=== PATIENT | female | born 1955 | race American Indian/Alaskan Native ===

== ENCOUNTER 2017-11-20 18:50 | Emergency (ER) | payer OTHER ==
[~2017-11-20] VITALS: Ht 160 cm; Wt 78.5 kg
[~2017-11-20 18:50] MED LIST: AMLODIPINE BESYL5 MG PO; ASPIRIN EC81 MG PO; BACTROBAN22 GM TP; CIPROFLOXACIN500 MG PO; GLIPIZIDE XL2.5 MG PO; HYDROCHLOROTHIA25 MG PO; HYDROPHILIC120 GM TP; LISINOPRIL40 MG PO; LORATADINE10 MG PO; METFORMIN HCL500 MG PO; SIMVASTATIN20 MG PO; VITAMIN D35000 UNIT PO
[2017-11-20] MEDS ORDERED: GLIPIZIDE XL10 MG PO ×2 (19:06→19:20)
[2017-11-20] MEDS ORDERED: BASAGLAR K100 UNIT/1 SUB-Q (19:07)
[2017-11-20] MEDS ORDERED: METFORMIN HCL500 MG PO (19:20)
[2017-11-20] MEDS ORDERED: LANTUS100 UNITS/ SUB-Q (19:20)
== END 2017-11-20 19:33 | disposition home or self-care (01) ==
LOC: ED 18:50
DX: Z76.0 Encounter for issue of repeat prescription (principal); E11.9 Type 2 diabetes mellitus without complications; I10 Essential (primary) hypertension; F17.200 Nicotine dependence, unspecified, uncomplicated; Z88.8 Allergy status to other drugs, medicaments and biological substances; Z79.4 Long term (current) use of insulin; Z79.899 Other long term (current) drug therapy
CPT/HCPCS: 99281

== ENCOUNTER 2019-04-19 10:02 | Emergency (ER) | payer OTHER ==
[~2019-04-19] VITALS: Ht 160 cm; Wt 81.3 kg
[~2019-04-19 10:02] MED LIST changes: +BASAGLAR K100 UNIT/1 SUB-Q; +GLIPIZIDE XL10 MG PO; +LANTUS100 UNITS/ SUB-Q
--- OUTSIDE RECORDS SUMMARY | 2019-04-19 10:06 | XMS ---
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 Jeanette has no Care Guidelines for this patient. Celsa VISIT COUNT (12 MO.) 1 CAROLANN Fried TOTAL 1 NOTE: Visits indicate total known visits. ED/C VISIT TRACKING (12 MO.) 04/19/2019 10:03 CAROLANN Perez OR TYPE: Emergency COMPLAINT: - BLOOD IN URINE, PAIN INPATIENT VISIT TRACKING (12 MO.) No inpatient visits to display in this time frame [email or web address]
[2019-04-19] MEDS ORDERED: PHENTERMINE H37.5 M1 PO (10:30)
[2019-04-19] MEDS ORDERED: FLUTICASONE PRO16 GM NAS (10:31)
[2019-04-19] MEDS ORDERED: PYRIDIUM200 MG PO (12:30)
[2019-04-19] MEDS ORDERED: MACROBID 100 M100 MG PO (12:30)
== END 2019-04-19 13:45 | disposition home or self-care (01) ==
LOC: ED 10:02
DX: N39.0 Urinary tract infection, site not specified (principal); E11.9 Type 2 diabetes mellitus without complications; I10 Essential (primary) hypertension; F17.200 Nicotine dependence, unspecified, uncomplicated; Z71.6 Tobacco abuse counseling; Z88.8 Allergy status to other drugs, medicaments and biological substances; Z79.899 Other long term (current) drug therapy; Z79.84 Long term (current) use of oral hypoglycemic drugs
CPT/HCPCS: 74176; 80053; 81001; 85025; 87077; 87088; 87186; 96365; 99284-25; 99406; J0696

== ENCOUNTER 2020-04-19 07:35 | Day surgery (SDC) | payer OTHER ==
[~2020-04-19] VITALS: Ht 160 cm; Wt 76.8 kg
[~2020-04-19 07:35] MED LIST changes: +FLUTICASONE PRO16 GM NAS; +MACROBID 100 M100 MG PO; +PHENTERMINE H37.5 M1 PO; +PYRIDIUM200 MG PO
[2020-04-19] MEDS ORDERED: ZYRTEC10 M3 PO (07:58)
--- NOTE | 2020-04-19 09:51 | NUR ---
04/19/20 0951 Radha Valdes 0946- PT ARRIVES TO PACU AROUSABLE TO VOICE. PT REPORTS NO PAIN OR NAUSEA AND FALLS BACK TO SLEEP. PT REPORTS SHE IS "JUST TIRED". PT PASSING FLATUS.
--- NOTE | 2020-04-19 10:45 | OR ---
[facility] [address] [place], [place] [address] Signed DATE OF OPERATION: 04/19/2020 SURGEON: Denisse Leon MD PREOPERATIVE DIAGNOSES: 1. Left mid quadrant and left lower quadrant abdominal pain. 2. History of diverticulosis. POSTOPERATIVE DIAGNOSES: 1. Minimal sigmoid diverticulosis. 2. Minimal internal hemorrhoids. 3. 6 mm polyp at 95 cm. 4. 4 mm polyp at 90 cm. 5. 5 mm polyp at 35 cm. 6. 4 mm polyp at 20 cm. 7. 4 mm polyp at 7 cm. PROCEDURE: Colonoscopy with hot biopsies. ESTIMATED BLOOD LOSS: None. INDICATIONS: Charu is a 64-year-old lady, who has undergone previous endoscopy back in 2008 and 2013. She is known to have diverticulosis. She had been down in [place] as her mom was . She ended up in the emergency room in November 2019 while in [place]. She was having left lower quadrant abdominal pain. She remembers a CT scan being performed, but has no details. They gave her antibiotics for diverticulitis. Overall, she feels better. She feels like she has some residual pain more in the left mid quadrant. She has now returned to [facility]. She has been asked to follow up for colonoscopy. She gives no family history of colon cancer or polyps. She talked about her had a sigmoid resection possibly for diverticulitis. She is pretty certain I did his surgery. In the office, I gave her a pamphlet on colonoscopy and we looked at that together along with the risks including, but not limited to gas bloating, crampy abdominal pain, bleeding, perforation requiring surgery, and missed diagnosis. We also discussed the need for IV conscious sedation. She had expressed understanding and wished to proceed. PROCEDURE NOTE: Electronically Signed By: DENISSE LEON MD 04/19/20 1045 PATIENT NAME: CHARU MARSHALL OPERATIVE REPORT DATE OF : 59 REPORT #: [id number] PHYSICIAN: DENISSE LEON MD PCP: NIMA GARVEY MD REPORT IS CONFIDENTIAL AND NOT TO BE RELEASED WITHOUT AUTHORIZATION [facility] [address] [place], [place] [address] Signed Charu was taken into our endoscopy suite and placed in the left lateral decubitus position. She was given 6 mg of Versed and 150 mcg of fentanyl to cover the case. A digital rectal exam was performed and this was unremarkable. The adult colonoscope was introduced and advanced all around into the cecum under direct visualization of camera without difficulty. The appendiceal orifice and the ileocecal valve were easily visualized. We had taken pictures throughout for photodocumentation. The scope was then slowly withdrawn. The above-mentioned polyps were easily removed and destroyed completely with the help of hot biopsy forceps. We did see a few diverticula in her sigmoid colon. They were moderate in size, few in number, and scattered about. The rectum was unremarkable, except for the one polyp. Upon retroflexion of the scope, she has very minimal internal hemorrhoid tissue. After this, the gas was suctioned out and colonoscope removed. Charu tolerated the procedure quite well. RECOMMENDATIONS: I will see Charu back in my office in 7 to 14 days to review her results. Denisse Leon MD ALB/MODL /[id number] cc: MD Nuzhat Kendall NP Copies: DENISSE LEON MD ~ Electronically Signed By: DENISSE LEON MD 04/19/20 1045 PATIENT NAME: CHARU MARSHALL OPERATIVE REPORT DATE OF : 59 REPORT #: [id number] PHYSICIAN: DENISSE LEON MD PCP: NIMA GARVEY MD REPORT IS CONFIDENTIAL AND NOT TO BE RELEASED WITHOUT AUTHORIZATION
--- NOTE | 2020-04-23 14:51 | PATH ---
[facility] [address] [place], [place] [address] Signed SPECIMEN(S): A COLON POLYP AT 95 CM SPECIMEN(S): B COLON POLYP AT 90 CM SPECIMEN(S): C COLON POLYP AT 35 CM SPECIMEN(S): D COLON POLYPAT 20 CM SPECIMEN(S): E RECTAL POLYP AT 7 CM SPECIMEN SOURCE: A. COLON POLYP AT 95 CM B. COLON POLYP AT 90 CM C. COLON POLYP AT 35 CM D. COLON POLYPAT 20 CM E. RECTAL POLYP AT 7 CM CLINICAL HISTORY: History of diverticulitis, LLQ pain. MICROSCOPIC DESCRIPTION: Histologic sections of all submitted blocks are examined by light microscopy. These findings, together with the gross examination, support the pathologic diagnosis. FINAL PATHOLOGIC DIAGNOSIS: A. Colon polyp at 95 cm, polypectomy: - Tubular adenoma with focal high-grade dysplasia. - Negative for malignancy. B. Colon polyp at 90 cm, polypectomy: - Fragment of polypoid-like colonic mucosa with increased chronic inflammation; see comment. - Negative for dysplasia. C. Colon polyp at 35 cm, polypectomy: - Fragment of polypoid-like colonic mucosa with increased chronic inflammation; see comment. - Negative for dysplasia. D. Colon polyp at 20 cm, polypectomy: - Hyperplastic polyp. E. Rectal polyp at 7 cm, polypectomy: - Hyperplastic polyp. COMMENT: Deeper levels were evaluated with similar findings. DDF:cml:C2NR PATIENT NAME: JOANNACHARUALENA MOLINA PATHOLOGY DATE OF : 59 REPORT #: [id number] PHYSICIAN: SJ FRANKS PCP: NIMA GARVEY MD REPORT IS CONFIDENTIAL AND NOT TO BE RELEASED WITHOUT AUTHORIZATION [facility] [address] [place], [place] [address] Signed GROSS DESCRIPTION: Five specimens are received in five containers, labeled "Charu Marlow." A. The specimen, labeled "Charu Marlow, #1," and designated on the requisition "colon polyp at 95 cm," is received in formalin and consists of one stephen soft tissue fragment that measures 0.4 cm in greatest dimension. The specimen is entirely submitted in cassette (A1). B. The specimen, labeled "Charu Marlow, #2," and designated on the requisition "colon polyp at 90 cm," is received in formalin and consists of one stephen soft tissue fragment that measures 0.3 cm in greatest dimension. The specimen is entirely submitted in cassette (B1). C. The specimen, labeled "Charu Marlow, #3," and designated on the requisition "colon polyp at 35 cm," is received in formalin and consists of one stephen soft tissue fragment that measures 0.4 cm in greatest dimension. The specimen is entirely submitted in cassette (C1). D. The specimen, labeled "Charu Marlow, number first," and designated on the requisition "colon polyp at 20 cm," is received in formalin and consists of one stephen soft tissue fragment that measures 0.4 cm in greatest dimension. The specimen is entirely submitted in cassette (D1). E. The specimen, labeled "Charu Marlow, #5," and designated on the requisition "rectal polyp at 7 cm," is received in formalin and consists of one stephen soft tissue fragment that measures 0.4 cm in greatest dimension. The specimen is entirely submitted in cassette (E1). FB (under the direct supervision of a pathologist) The Gross Description was prepared using a voice recognition system. The report was reviewed for accuracy; however, sound-alike word errors, addition and/or deletions may occur. If there is any question about this report, please contact Client Services. PERFORMING LABORATORY: The technical component was performed by [facility], [address] [place], [place] [id number] (Wireless Team Member: Johanna Robert MD; CLIA# [id number]). Professional interpretation was performed by [facility], [address] [place] [id number] (Wireless Team Member: Johanna Robert MD; CLIA# [id number]). Diagnostician: Lan Rucker DO Pathologist Electronically Signed 04/23/2020 Copies: PATIENT NAME: CHARU MARLOW PATHOLOGY DATE OF : 59 REPORT #: [id number] PHYSICIAN: SJ FRANKS PCP: NIMA GARVEY MD REPORT IS CONFIDENTIAL AND NOT TO BE RELEASED WITHOUT AUTHORIZATION [address] [place] [address] Signed ~ PATIENT NAME: CHARU MARLOW PATHOLOGY DATE OF : 59 REPORT #: [id number] PHYSICIAN: SJ FRANKS PCP: NIMA GARVEY MD REPORT IS CONFIDENTIAL AND NOT TO BE RELEASED WITHOUT AUTHORIZATION
== END 2020-04-19 10:40 | disposition home or self-care (01) ==
LOC: OPS 07:35 → DS 07:35 → OPS 09:00
PROVIDERS: ATTEND Colon & Rectal Surgery
PROC: 0DBE8ZZ Excision of Large Intestine, Via Natural or Artificial Opening Endoscopic (ICD-10-PCS; principal; 2020-04-19 09:00)
DX: K57.30 Diverticulosis of large intestine without perforation or abscess without bleeding (principal); D12.6 Benign neoplasm of colon, unspecified; K63.5 Polyp of colon; K51.40 Inflammatory polyps of colon without complications; K62.1 Rectal polyp; K64.8 Other hemorrhoids; E11.9 Type 2 diabetes mellitus without complications; I10 Essential (primary) hypertension; F32.9 Major depressive disorder, single episode, unspecified; E66.9 Obesity, unspecified; F17.210 Nicotine dependence, cigarettes, uncomplicated; E55.9 Vitamin D deficiency, unspecified; Z87.442 Personal history of urinary calculi; Z79.4 Long term (current) use of insulin; Z79.82 Long term (current) use of aspirin; Z88.1 Allergy status to other antibiotic agents; Z88.8 Allergy status to other drugs, medicaments and biological substances; Z68.31 Body mass index [BMI] 31.0-31.9, adult
CPT/HCPCS: 99153; G0500; J2250; J3010; J7121

== ENCOUNTER 2021-03-28 09:27 | Inpatient (IN) | payer OTHER ==
[~2021-03-28] VITALS: Ht 160 cm; Wt 76.6 kg
--- NOTE | ~2021-03-28 | CONS ---
[facility] [address] [place], [place] [address] Draft DATE OF CONSULTATION: 03/28/2021 REQUESTING PHYSICIAN: Dr. Diaz. PROBLEM: Left-sided colitis. HISTORY OF PRESENT ILLNESS: This 65-year-old woman was admitted by Dr. Diaz with left-sided abdominal pain. A CT scan finding showing inflammation extending from the splenic flexure to the rectosigmoid area. Notably, the patient does smoke on a routine basis. She has undergone colonoscopy in the past by Dr. Denisse Leon and noted to have polyps. Her last operative report was April 19, 2020, nearly a year ago, which showed minimal sigmoid diverticulosis and internal hemorrhoids as well as very small polyps throughout the colon. The patient has been treated for left lower abdominal pain, considered diverticulitis in the past. In the past two weeks, she has had vague left-sided abdominal pain. She was evaluated by Dr. Waters at [facility] and underwent a CT scan relatively recently (not seen in my review of records locally) and showed nothing of concern other than diverticular changes. Her presentation was to the emergency room today at approximately 9:30, where she was evaluated by Dr. Beck Navarrete with complaints of left lower abdominal pain and nausea and vomiting and diarrhea. She had hematochezia to include bright red blood per rectum and copious liquid bloody fluid as well. FAMILY HISTORY: Negative for colon cancer that she is aware of. She denies any family history of ulcerative colitis or Crohn disease. CURRENT MEDICATIONS: Have included Zyrtec, atorvastatin, Trulicity, amlodipine, aspirin, vitamin D3, hydrochlorothiazide, and lisinopril. As noted, she smokes on a daily basis. PAST SURGICAL HISTORY: Includes tubal ligation. SOCIAL HISTORY: She is . She is a [employer] member and lives in the [facility]. PATIENT NAME: CHARU MARSHALL CONSULTATION DATE OF : 59 REPORT #: [id number] PHYSICIAN: BECK CLAYTON MD PCP: [facility] REPORT IS CONFIDENTIAL AND NOT TO BE RELEASED WITHOUT AUTHORIZATION [facility] [address] [place], [place] [address] Draft REVIEW OF SYSTEMS: Denies any shortness of breath or chest pain. Has had no dysphagia or dysuria. Denies any hematuria. Has had blood per rectum as previously described and has persistent left lower abdominal pain currently. PHYSICAL EXAMINATION: GENERAL: Pleasant woman, who does not look to be in severe distress or toxicity. VITAL SIGNS: Temperature is 98.3, pulse 64, blood pressure 163/62. NECK: Shows no thyromegaly or cervical adenopathy. Trachea is midline. She has no hoarseness. CHEST: Clear. HEART: Regular without murmur. ABDOMEN: Nondistended. She has tenderness on the left side and none on the right side. She does not have ascites clinically. EXTREMITIES: Show no clubbing, cyanosis, or edema. LABORATORY STUDIES: Showed a white count of 14.1 at approximately 10:45 a.m. today, hematocrit 40.6, platelets 316,000. Chem profile notable for an elevated creatinine of 1.25, glucose 256. Her albumin 3.7. Lipase 114. Serology shows positive on her coronavirus test. Upon review, she has had COVID disease within the past 90 days and has clinically recovered fully from that. On that basis, she is not in respiratory isolation at this time. It is unclear if she had colonic manifestations when she did have a COVID disease. CT scan images were reviewed and report reviewed, which described left-sided colitis. I reviewed the films myself and appears less apparent to me than the radiologist at this point. ASSESSMENT: Most likely, the patient has ischemic colitis that has been postulated by Dr. Diaz. She has rather typical manifestations including left-sided abdominal pain, thickening on CT scan and hematochezia. I would recommend colonoscopy primarily to differentiate diagnosis from other comorbidities including ischemic colitis versus ulcerative colitis or other infectious colitis. Characteristic distribution of ischemic colitis as well as normal mucosa of the rectum and more proximal colon is all often confirmatory of this as well. The risks of bleeding, infection, and perforation related to colonoscopy was reviewed with her, she understands and wished to proceed. We will plan to do this tomorrow at some point. Beck Clayton MD PATIENT NAME: CHARU MARSHALL CONSULTATION DATE OF : 59 REPORT #: [id number] PHYSICIAN: BECK CLAYTON MD PCP: [facility] REPORT IS CONFIDENTIAL AND NOT TO BE RELEASED WITHOUT AUTHORIZATION [facility] [address] [place], [place] [address] Draft TONI/SUNSHINEL /[id number] cc: MD Sean Kendall MD [facility] Damián Diaz MD Copies: DENISSE LEON MD,DAMIÁN OCHOA MD ~ PATIENT NAME: CHARU MARSHALL CONSULTATION DATE OF : 59 REPORT #: [id number] PHYSICIAN: BECK CLAYTON MD PCP: [facility] REPORT IS CONFIDENTIAL AND NOT TO BE RELEASED WITHOUT AUTHORIZATION
--- NOTE | ~2021-03-28 | OR ---
[facility] [address] [place], [place] [address] Draft DATE OF OPERATION: 03/28/2021 SURGEON: Beck Clayton MD PREOPERATIVE DIAGNOSIS: Left-sided colitis. POSTOPERATIVE DIAGNOSES: 1. Classic ischemic colitis extending from splenic flexure through sigmoid. 2. Polyps x2 (small). PROCEDURES: 1. Total colonoscopy to cecum with cold morcellation polypectomy x2. 2. Multiple biopsies remaining colon including ischemic segment. ANESTHESIA: Intravenous sedation, propofol infusion, Beck Beatty CRNA INDICATIONS: This 65-year-old woman is admitted by Dr. Beaulieu on March 28, 2021 with left-sided pain, blood per rectum, and CT scan findings consistent with colitis of the left colon. Ischemic colitis was considered likely. The patient has had no similar episodes in the past. She does smoke on a daily basis. She has been given intravenous antibiotics, IV fluids, and bowel rest and continues to have left-sided abdominal pain and some amount of blood per rectum. She did tolerate MiraLAX bowel prep. She is admitted to undergo colonoscopy at this time to affirm the clinical diagnosis of probable ischemic colitis. On the possibility, this represents inflammatory bowel disease problem, for which specific therapy would be altered. She understands the risks of bleeding, infection, and perforation related to colonoscopy and wished to proceed. FINDINGS: The prep was good. Complete colonoscopy was undertaken to the cecum without question. She had classic ischemic colitis extending from the splenic flexure through the sigmoid colon. The rectum was spared. There was a small polyp of the rectosigmoid, which was excised and another similar small polyp of the proximal ascending colon which was also excised. Biopsies were taken of normal colon at the cecum, transverse colon and rectum, and of the abnormal colon in the proximal descending, mid descending, and sigmoid areas. DESCRIPTION OF PROCEDURE: The patient was brought to the endoscopy suite and placed in lateral decubitus position PATIENT NAME: CHARU MARSHALL OPERATIVE REPORT DATE OF : 59 REPORT #: [id number] PHYSICIAN: BECK CLAYTON MD PCP: [facility] REPORT IS CONFIDENTIAL AND NOT TO BE RELEASED WITHOUT AUTHORIZATION [facility] [address] [place], [place] [address] Draft given intravenous sedation with propofol infusional technique by the director sports with full cardiopulmonary monitoring. Digital rectal examination was normal. An Olympus video colonoscope was passed into the rectum and manipulated throughout the colon. Upon entering the proximal sigmoid colon quite obvious ischemic changes were noted with some areas of circumferential ischemic colitis. The scope was advanced beyond the splenic flexure to the mid transverse colon, which was normal. Scope was ultimately advanced to the cecum. In the cecum, the ileocecal valve was normal. Biopsies were taken in the cecum to assure its normal histology. A small polyp was noted in the proximal ascending colon, cecal junction. This was excised with cold morcellation technique. Further withdrawal of scope allowed for biopsy of the mid transverse colon and ischemic changes began at approximately the splenic flexure. Biopsies were taken there and in the mid colon and sigmoid affirming the ischemic change. Most of the ischemia was actually in the mid to left and sigmoid area. Upon withdrawal beyond the sigmoid, completely normal mucosa was noted as is typical of this problem. A small polyp was noted of the rectum, which was excised with cold morcellation technique and biopsies taken of the rectum as well. Retroflexed view was normal. Scope was removed. The patient was taken to the recovery room in good condition. CONCLUDING DIAGNOSIS: 1. Classic ischemic colitis, left colon. 2. Two small polyps, both excised. PLAN: Recommend a low fiber diet for the next 4 weeks. I will see her back in followup in 4-6 weeks. Consideration will be made for followup colonoscopy to assure resolution and lack of stricture formation. Antibiotics at discharge may be reasonable at the discretion of Dr. Beaulieu. MD TONI Carrasco/MODL /[id number] PATIENT NAME: CHARU MARSHALL OPERATIVE REPORT DATE OF : 59 REPORT #: [id number] PHYSICIAN: BECK CLAYTON MD PCP: [facility] REPORT IS CONFIDENTIAL AND NOT TO BE RELEASED WITHOUT AUTHORIZATION [facility] [address] [place], [place] [address] Draft cc: Damián Beaulieu MD [facility] Copies: DAMIÁN BEAULIEU MD [facility] ~ PATIENT NAME: CHARU MARSHALL OPERATIVE REPORT DATE OF : 59 REPORT #: [id number] PHYSICIAN: BECK CLAYTON MD PCP: [facility] REPORT IS CONFIDENTIAL AND NOT TO BE RELEASED WITHOUT AUTHORIZATION
[~2021-03-28 09:27] MED LIST changes: +ZYRTEC10 M3 PO
[2021-03-28] MEDS ORDERED: ATORVASTATIN CA10 MG PO (10:32)
[2021-03-28] MEDS ORDERED: TRULICITY3 MG/0.5 M SQ (10:32)
--- NOTE | 2021-03-28 15:17 | NUR ---
pt admitted from the ER for abdominal pain, NPO, room air , A&Ox4, denies pain at the moment, zofran given in the ER.
--- NOTE | 2021-03-28 16:24 | NUR ---
patient tested positive on of this year so she falls in the 90day no retest. Dr. Diaz is okay with us not considering her as covid +.
--- NOTE | 2021-03-28 17:30 | NUR ---
pt is has questions about restarting home medications, this nurse talked to DR Diaz and he is holding her home meds at the moment due to pt NPO status.
--- NOTE | 2021-03-28 18:46 | NUR ---
DR CLAYTON ROUNDED ON PT, PLAN TO DO COLONOSCOPY TOMORROW MORNING PT AWARW, NO BM YET UNABLE TO COLLECT STOOL SAMPLE EDUCATED THAT WE WILL NEED A SAMPLE. DENIES ANY NEEDS AT THE MOMENT
--- NOTE | 2021-03-28 19:26 | NUR ---
PT COMPLAINING OF HEADACHE PRN TYLENOL GIVEN
--- NOTE | 2021-03-28 19:45 | NUR ---
BEDSIDE REPORT FROM ANDERSON CANNON RN, PT RESTING IN BED, SPOUSE AT BEDSIDE, THEY HAD QUESTIONS ABOUT PLAN OF CARE, DISCUSSED BOWEL PREP AND PLAN FOR COLONOSCOPY TOMORROW. NO OTHER QUESTIONS AT THIS TIME. PT APPEARS TO BE IN NO DISTRESS.
--- NOTE | 2021-03-28 20:51 | NUR ---
pt sitting up at bedside, starting mirlax bowel prep, bedside commode available, call light in reach, pt reports no pain or nausea.
--- NOTE | 2021-03-28 22:00 | NUR ---
PT CALLED NURSES STATION TO REPORT SHE HAS HAD HER FIRST BM SINCE STARTING BOWEL PREP.
--- NOTE | 2021-03-28 23:32 | NUR ---
PT HAS COMPLETED 1/3 OF DOSE OF MIRLAX SHE HAS BEEN UP TO VOID AND HAVE BM, WAS NOTED TO HAVE ONE SMALL FORMED STOOL PIECE, ALSO NOTED TO HAVE JOHN BLOOD SMALL AMOUNT WITH STOOL OUT. PT REPORTS SHE HAS SOME NAUSEA, WHEN SET UP WITH FURTHER MIRLAX DRINK MIX, ZOFRAN GIVEN, WILL MONITOR FOR COMPLETION.
--- NOTE | 2021-03-28 23:40 | NUR ---
CALLED THE UNIT FOR UPDATES, ASKED ABOUT PT'S MIRLAX, SHE WILL ONLY COMPLETE ABOUT 2/3 OF DOSE BY MIDNIGHT, SAID THAT WILL BE ENOUGH TO STOP AT MIDNIGHT, SHE HAS HAD CLEAR LIQUID STOOLS WITH ONE SMALL APPROX 3.81 CM FORMED STOOL NOTED AT 2200.
--- NOTE | 2021-03-28 23:57 | NUR ---
PT UP TO BEDSIDE COMMODE, SHE HAD VOID AND MUCUS BLOODY BM JOHN IN COLOR SMALL AMOUNT. PT REPORTS NAUSEA BETTER AFTER ZOFRAN GIVEN, PT HAS NO DISTRESS NOTED. SHE REPORTS NO PAIN AT THIS TIME.
--- NOTE | 2021-03-29 00:09 | NUR ---
CHECKED WITH LAB ABOUT STOOL SAMPLE THAT ANDERSON CANNON RN SHOWED ME AND SHE STICKERED AND SENT IN TUBE SYSTEM, HEAD MEN'S TENNIS COACH SAID THEY DO NOT HAVE SAID SAMPLE. HE WENT TO LAB ABD DOUBLE CHECKED THEN REPORTED BACK NO SAMPLE IN LAB FOR THIS PT. WILL MONITOR IF NEW SAMPLE CAN BE SENT OVER THIS SHIFT.
--- NOTE | 2021-03-29 00:17 | NUR ---
STOOL SAMPLE SENT AT THIS TIME BY THIS RN TO LAB, ALSO NOTIFIED LAB STAFF THAT IT HAS BEEN SENT.
--- NOTE | 2021-03-29 03:56 | NUR ---
PT CALLED NURSES STATION TO REPORT IV PUMP BEEPING, NEW BAG FLUID STARTED. SHE VERBALIZED SHE HAS SOME MILD PAIN SHE FEELS IS RELATED TO NEEDING TO USE THE BSC AGAIN, SHE DENIES WANTING ANYHTING FOR PAIN AT THIS TIME.
--- NOTE | 2021-03-29 06:15 | NUR ---
PT TOOK IN 2/3 OF DOSE OF BOWEL PREPBEFORE MIDNIGHT, SHE HAS HAD MULTIPLE LIQUID STOOLS, JOHN TO DARK RED BLOOD NOTED IN STOOLS. SHE HAS REPORTED NOT NEEDING ANY PAIN MEDICATION OVER SHIFT, SHE DID HAVE NAUSEA ONCE DURING BOWEL PREP, ZOFRAN PRN GIVEN AND WAS AFFECTIVE. SHE HAS BEEN INDEPENDENT TO BEDSIDE COMMODE. STOOL SAMPLE SENT ON THIS SHIFT. PT'S WOULD LIKE TO TALK TO HER ON THE PHONE BEFORE SHE GOES INTO PROCEDURE.
--- NOTE | 2021-03-29 07:15 | NUR ---
BED SIDE REPORT RECIEVED FROM SPEEDER WORKER RN PLAN FOR COLONOSCOPY, NPO SINCE MIDNIGHT, DENIES ANY NEEDS AT THE MOMENT.
--- NOTE | 2021-03-29 09:07 | NUR ---
RN IN ROOM TO ASSESS PT AND GIVE MORNING MEDS
--- NOTE | 2021-03-29 09:20 | NUR ---
Pt lives in 2 story home with 2 steps. LIves with her spouse. Works from [employer]. Denies needs. Awaiting colonoscopy today and may be able to dc to home following per Dr. Fried.
--- NOTE | 2021-03-29 09:53 | NUR ---
PT Taken down to procedure.
--- NOTE | 2021-03-29 10:09 | NUR ---
Pt denies needs. Awaiting surgery. Denies use of DME. Will return to [facility] on discharge. [employer]al officers to transport.
--- NOTE | 2021-03-29 10:38 | NUR ---
03/29/21 1038 Shila Rodriguez 1019 PT ARRIVED IN PACU NON RESPONSIVE TO NOXIOUS STIMULI WITH OPA IN PLACE. CHIN LIFT HELD. 1035 PT REACTIVE. OPA REMOVED. ABD SOFT AND PASSING FLATUS.
--- NOTE | 2021-03-29 10:48 | NUR ---
PT HAS BEEN TAKEN TO OR. WILL FOLLOW
--- NOTE | 2021-03-29 11:04 | NUR ---
PT BACK FROM SCOPE, A&OX4, ROOM AIR, NO PAIN
--- NOTE | 2021-03-29 11:45 | NUR ---
PT GIVEN LOW FIBER MENU, UP TO BATHROOM SBA, WILL ORDER LUNCH TRAY. NO OTHER NEEDS AT THE MOMENT
--- NOTE | 2021-03-29 12:03 | NUR ---
PT TAKEN TO OR. WILL FOLLOW
[2021-03-29] MEDS ORDERED: CEPHALEXIN500 MG PO (13:33)
[2021-03-29] MEDS ORDERED: METRONIDAZOLE500 MG PO (13:33)
[2021-03-29] MEDS ORDERED: NICOTINE1 EAC2 TD (13:34)
[2021-03-29] MEDS ORDERED: OXYCODONE HCL5 MG PO (13:34)
[2021-03-29] MEDS ORDERED: FLONASE ALLERG9.9 ML NAS (13:42)
--- NOTE | 2021-03-29 13:42 | NUR ---
dr boyd rounded on pt and plan for discharge today
[2021-03-29] MEDS ORDERED: ONDANSETRON ODT4 MG SL (13:43)
== END 2021-03-29 15:14 | disposition home or self-care (01) | DRG 393 ==
LOC: ED 09:27 → MS 14:42
PROVIDERS: ADMIT Internal Medicine; ATTEND Internal Medicine
PROC: 8E0ZXY6 Isolation (ICD-10-PCS; principal; 2021-03-28)
PROC: 0DBH8ZZ Excision of Cecum, Via Natural or Artificial Opening Endoscopic (ICD-10-PCS; 2021-03-28)
PROC: 0DBK8ZX Excision of Ascending Colon, Via Natural or Artificial Opening Endoscopic, Diagnostic (ICD-10-PCS; 2021-03-28)
PROC: 0DBP8ZZ Excision of Rectum, Via Natural or Artificial Opening Endoscopic (ICD-10-PCS; 2021-03-28)
PROC: 0DBK8ZX Excision of Ascending Colon, Via Natural or Artificial Opening Endoscopic, Diagnostic (ICD-10-PCS; 2021-03-28)
PROC: 0DBL8ZX Excision of Transverse Colon, Via Natural or Artificial Opening Endoscopic, Diagnostic (ICD-10-PCS; 2021-03-28)
PROC: 0DBN8ZX Excision of Sigmoid Colon, Via Natural or Artificial Opening Endoscopic, Diagnostic (ICD-10-PCS; 2021-03-28)
DX: K55.039 Acute (reversible) ischemia of large intestine, extent unspecified (principal); U07.1 COVID-19; K51.50 Left sided colitis without complications; K63.5 Polyp of colon; E11.9 Type 2 diabetes mellitus without complications; I10 Essential (primary) hypertension; E78.5 Hyperlipidemia, unspecified; F17.200 Nicotine dependence, unspecified, uncomplicated; Z98.51 Tubal ligation status; Z88.1 Allergy status to other antibiotic agents; Z88.8 Allergy status to other drugs, medicaments and biological substances; Z79.4 Long term (current) use of insulin; Z79.82 Long term (current) use of aspirin; Z79.899 Other long term (current) drug therapy
CPT/HCPCS: 74177; 80053; 81001; 83690; 85025; 99285-25; C9803; J0690; J1815; J2405; J2704; J7121; U0003

== ENCOUNTER 2021-06-24 12:41 | Day surgery (SDC) | payer OTHER ==
[~2021-06-24] VITALS: Ht 160 cm; Wt 76.3 kg
[~2021-06-24 12:41] MED LIST changes: +ATORVASTATIN CA10 MG PO; +CEPHALEXIN500 MG PO; +FLONASE ALLERG9.9 ML NAS; +METRONIDAZOLE500 MG PO; +NICOTINE1 EAC2 TD; +ONDANSETRON ODT4 MG SL; +OXYCODONE HCL5 MG PO; +TRULICITY3 MG/0.5 M SQ
--- NOTE | 2021-06-24 14:55 | NUR ---
06/24/21 1455 Radha Valdes 1449- PT ARRIVES TO PACU REACTIVE TO STIMULI. PT FALLS INSTANTLY BACK TO SLEEP. RESP EVEN AND UNLABORED. OXYGEN SAT LOW TO MID 90'S ON 2L VIA NC. 1453- PT REACTIVE TO STIMULI. PT MORE ALERT THIS TIME AND REPORTS SHE IS NOT HAVING ANY PAIN OR NAUSEA.
--- NOTE | 2021-06-25 12:21 | PATH ---
[facility] [address], [place] [address] Signed SPECIMEN(S): A DUODENAL BIOPSY SPECIMEN(S): B ANTRUM BIOPSY SPECIMEN(S): C DISTAL LOW ESOPHAGEAL BIOPSY SPECIMEN(S): D MID ESOPHAGEAL BIOPSY SPECIMEN(S): E LEFT SPLENIC FLEXURE BIOPSY SPECIMEN(S): F RECTAL BIOPSY SPECIMEN SOURCE: A. DUODENAL BIOPSY B. ANTRUM BIOPSY C. DISTAL LOW ESOPHAGEAL BIOPSY D. MID ESOPHAGEAL BIOPSY E. LEFT SPLENIC FLEXURE BIOPSY F. RECTAL BIOPSY CLINICAL HISTORY: Colonoscopy/EGD. GERD with esophagitis; history of ischemic colitis (03/26)/hiatal hernia, distal esophagitis. FINAL PATHOLOGIC DIAGNOSIS: A. Duodenum, biopsy: - Duodenal mucosa with no histopathologic abnormality. - Negative for increased intraepithelial lymphocytes or villous blunting. - Negative for dysplasia or malignancy. B. Stomach, antrum, biopsy: - Oxyntic mucosa with focal chronic, inactive gastritis. - Antral mucosa with no histopathologic abnormality. - Negative for Helicobacter organisms on HE stain. - Negative for dysplasia or malignancy. C. Esophagus, distal lower, biopsy: - Intestinal metaplasia arising in [id number] mucosa with chronic inflammation and reactive changes. - Squamous mucosa with mild chronic inflammation and reactive epithelial changes, suggestive of reflux esophagitis. - Negative for dysplasia or malignancy. - See Comment. D. Esophagus, mid, biopsy: - Squamous mucosa with no significant histopathologic abnormality. - Negative for increased intraepithelial eosinophils. - Negative for dysplasia or malignancy. PATIENT NAME: CHARU MARSHALL PATHOLOGY DATE OF : 59 REPORT #: [id number] PHYSICIAN: SJ FRANKS PCP: NIMA GARVEY MD REPORT IS CONFIDENTIAL AND NOT TO BE RELEASED WITHOUT AUTHORIZATION [facility] [address], [place] [address] Signed E. Colon, left and splenic flexure, biopsy: - Fragments of colonic mucosa with focal crypt architectural distortion. - Negative for active, chronic, or microscopic colitis. - Negative for dysplasia or malignancy. - See Comment. F. Rectum, biopsy: - Rectal mucosa with no histopathologic abnormality. - Negative for active or chronic proctitis. - Negative for dysplasia or malignancy. 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 Regarding specimen E: The focal crypt architectural distortion could represent an area of previous colonic injury. There is no active colitis. NAL:smn:[id number] MICROSCOPIC EXAMINATION: Histologic sections of all submitted blocks are examined by light microscopy. These findings, together with the gross examination, support the pathologic diagnosis. GROSS DESCRIPTION: Six specimens are received in six containers, labeled "KM." A. The specimen, labeled "KM, duodenum biopsy," is received in formalin and consists of two stephen soft tissue fragments that measure 0.2-0.3 cm in greatest dimension. The specimen is entirely submitted in cassette (A1). B. The specimen, labeled "KM, antrum biopsy," is received in formalin and consists of three stephen soft tissue fragments that measure 0.2-0.7 cm in greatest dimension. The specimen is entirely submitted in cassette (B1). C. The specimen, labeled "KM, distal low esophagus biopsy," is received in formalin and consists of four stephen soft tissue fragments that measure 0.1-0.2 cm in greatest dimension. The specimen is entirely submitted in cassette (C1). D. The specimen, labeled "KM, mid esophagus biopsy," is received in formalin and consists of one stephen soft tissue fragment that measures 0.2 cm in greatest dimension. The specimen is entirely submitted in cassette (D1). E. The specimen, labeled "KM, left colon and splenic flexure biopsy," is PATIENT NAME: CHARU MARSHALL PATHOLOGY DATE OF : 59 REPORT #: [id number] PHYSICIAN: SJ FRANKS PCP: NIMA GARVEY MD REPORT IS CONFIDENTIAL AND NOT TO BE RELEASED WITHOUT AUTHORIZATION [facility] [address], [place] [address] Signed received in formalin and consists of five stephen soft tissue fragments that measure 0.1-0.2 cm in greatest dimension. The specimen is entirely submitted in cassette (E1). F. The specimen, labeled "KM, rectal biopsy," is received in formalin and consists of two stephen soft tissue fragments that measure 0.2 cm in greatest dimension. The specimen is entirely submitted in cassette (F1). JS (under the direct supervision of a pathologist) The Gross Description was prepared using a voice recognition system. The report was reviewed for accuracy; however, sound-alike word errors, addition and/or deletions may occur. If there is any question about this report, please contact Client Services. PERFORMING LABORATORY: The technical component was performed by [facility], [address] [place], [place] [id number] (Outbound Supervisor: Johanna Robert MD; CLIA# [id number]). Professional interpretation was performed by [facility], [address], [address] [place] [address] (CLIA# [id number]). Diagnostician: Anastasia Stanley MD Pathologist Electronically Signed 06/25/2021 Copies: ~ PATIENT NAME: CHARU MARSHALL PATHOLOGY DATE OF : 59 REPORT #: [id number] PHYSICIAN: SJ PATHOLOGY PCP: NIMA GARVEY MD REPORT IS CONFIDENTIAL AND NOT TO BE RELEASED WITHOUT AUTHORIZATION
--- NOTE | 2021-06-25 19:02 | OR ---
[facility] [address] [place], [place] [address] Signed DATE OF OPERATION: 06/24/2021 SURGEON: Beck Clayton MD PREOPERATIVE DIAGNOSES: 1. Gastroesophageal reflux disease which is symptomatic. 2. History of ischemic colitis, March 2021. POSTOPERATIVE DIAGNOSES: 1. Hiatal hernia and mild distal esophagitis. 2. Normal-appearing colon except for scattered diverticula; resolution of ischemic colitis. PROCEDURE: 1. Esophagogastroduodenoscopy with biopsy. 2. Total colonoscopy to cecum with biopsies of left colon. ANESTHESIA: Intravenous sedation fentanyl 150 mcg and Versed 4 mg (total). INDICATION: This 65-year-old woman is a patient of Dr. Nima Waters, [facility]. She was admitted and treated for ischemic colitis in March 2021. She has recovered from those symptoms completely. She additionally has significant reflux symptoms for which upper endoscopy is requested. She is admitted at this time to undergo upper endoscopy as well as concurrent colonoscopy to assess there is complete resolution of the ischemic colitis. Notably, she did have excision of cecal polyp on previous colonoscopy in March. FINDINGS: Upper endoscopy did show hiatal hernia and mild distal esophagitis. There was no stricture. It was equivocal regarding Dover's epithelium; a short segment Dover's might be possible. She clearly had a hiatal hernia contributing to reflux symptoms. The stomach had mild antral gastritis. The duodenum was normal. CLOtest was 20 minutes post procedure. On colonoscopy, the prep was quite excellent. Complete colonoscopy was undertaken. There was no sign of polyp. There were scattered diverticula of the sigmoid and complete resolution of ischemic colitis of the left colon and rectosigmoid. Electronically Signed By: BECK CLAYTON MD 06/25/211901 PATIENT NAME: CHARU MARSHALL OPERATIVE REPORT DATE OF : 59 REPORT #: [id number] PHYSICIAN: BECK CLAYTON MD PCP: NIMA WATERS MD REPORT IS CONFIDENTIAL AND NOT TO BE RELEASED WITHOUT AUTHORIZATION [facility] [address], [place] [address] Signed DESCRIPTION OF PROCEDURE: The patient was brought to the endoscopy suite and placed in lateral decubitus position after undergoing topical lidocaine hypopharyngeal anesthesia. A bite block was placed. An Olympus video upper endoscope was passed in the hypopharynx. The vocal cords appeared normal. The scope was advanced to the esophagus. Throughout its length it was normal. The distal portion showed mild chronic distal esophagitis, but no ulceration. The scope was advanced to the stomach, which was insufflated with air. Rugal folds were normal. The antrum showed mild chronic inflammation. Pylorus was normal, scope was passed through it into the duodenum, which was normal. Biopsies were taken of the duodenum. The scope was withdrawn. A biopsy was then taken of the antrum for both FRANCISCA and pathologic testing. Retroflexed view showed a moderate-sized hiatal hernia. Scope was straightened and withdrawn and biopsies then taken of distal esophageal mucosa which had mild chronic inflammation and questionable short-segment Dover's. Careful withdrawal after biopsy of the mid esophagus. Scope was removed. Plans made for colonoscopy. Additional sedation was given and digital rectal examination performed which was normal. An Olympus video colonoscope was passed in the rectum and manipulated throughout the colon ultimately intubating the right colon with visualization of the cecum. As the main issue was to assess for the left colon, further pushing of the scope to the cecum was not deemed necessary. The scope was withdrawn from that point and examination undertaken showing no sign of ischemic changes more distally in the colon, certainly not in the splenic flexure or left colon. There were scattered diverticula of the sigmoid. Retroflexed view of the rectum was normal. Scope was removed and the patient was taken to the recovery room in good condition. CONCLUDING DIAGNOSES: 1. Ischemic colitis, resolved. 2. Gastroesophageal reflux with esophagitis associated with hiatal hernia. PLAN: She will return to see me in approximately 4-6 week. We will prescribe Prilosec for symptom control if she is not already on a PPI medication. MD TONI Carrasco/DIANN /[id number] Electronically Signed By: BECK CLAYTON MD 06/25/211901 PATIENT NAME: CHARU MARSHALL OPERATIVE REPORT DATE OF : 59 REPORT #: [id number] PHYSICIAN: BECK CLAYTON MD PCP: NIMA WATERS MD REPORT IS CONFIDENTIAL AND NOT TO BE RELEASED WITHOUT AUTHORIZATION [facility] [address] [place] [id number] Signed cc: Nima Waters MD Copies: NIMA WATERS MD ~ Electronically Signed By: BECK CLAYTON MD 06/25/211901 PATIENT NAME: CHARU MARSHALL OPERATIVE REPORT DATE OF : 59 REPORT #: [id number] PHYSICIAN: BECK CLAYTON MD PCP: NIMA WATERS MD REPORT IS CONFIDENTIAL AND NOT TO BE RELEASED WITHOUT AUTHORIZATION
== END 2021-06-24 16:09 | disposition home or self-care (01) ==
LOC: OPS 12:41 → DS 12:41 → OPS 14:00 → DS 14:00 → OPS 16:09
PROVIDERS: ATTEND Surgery
PROC: 0DB68ZZ Excision of Stomach, Via Natural or Artificial Opening Endoscopic (ICD-10-PCS; principal; 2021-06-24 14:00)
PROC: 0DBG8ZZ Excision of Left Large Intestine, Via Natural or Artificial Opening Endoscopic (ICD-10-PCS; 2021-06-24 14:00)
DX: K21.00 Gastro-esophageal reflux disease with esophagitis, without bleeding (principal); K44.9 Diaphragmatic hernia without obstruction or gangrene; K57.30 Diverticulosis of large intestine without perforation or abscess without bleeding; K29.50 Unspecified chronic gastritis without bleeding; F17.210 Nicotine dependence, cigarettes, uncomplicated; Z87.19 Personal history of other diseases of the digestive system
CPT/HCPCS: 99153; G0500; J2250; J3010; J7121